=== PATIENT | male | born 1960 | race Caucasian/White ===

== ENCOUNTER 2023-09-16 15:30 | Emergency (ER) | payer OTHER, SELFPAY ==
[2023-09-16 15:33] VITALS: BP 128/73
[2023-09-16 15:40] VITALS: BMI 26.5
[2023-09-16 15:57] LABS: % Basophils 0.2 % (0-2); % Eosinophils 0.1 % (0-6); % Immature Granulocytes 0.6 % (0-0.5); % Lymphocytes 10.7 % (20.5-51.1); % Monocytes 18.1 % (1.7-9.3); % Neutrophils 70.3 % (42.2-75.2); Absolute Immature Granulocytes 0.1 10^3/uL (0-0.05); Absolute Lymphocytes 0.9 10^3/uL (1.2-3.4); Absolute Monocytes 1.5 10^3/uL (0.1-0.6); Absolute Neutrophils 5.9 10^3/uL (1.4-6.5); Hematocrit 44.5 % (39.0-52.0); Mean Corp Hgb Conc. 33.7 g/dL (33.0-37.0); Mean Corpuscular Hgb 30.6 pg (27.0-31.0); Mean Corpuscular Volume 90.8 fL (80.0-94.0); Mean Platelet Volume 9.1 fL (7.4-10.4); Nucleated Red Blood Cells % 0 % (-); Platelet Count 202 10^3/uL (130-400); Red Cell Dist. Width 13.5 % (11.5-14.5); White Blood Cell Count 8.4 10^3/uL (4.8-10.8)
[2023-09-16 16:12] LABS: ALT (SGPT) 28 U/L (0-50); AST (SGOT) 137 U/L (17-59); Albumin 4.2 g/dl (3.5-5.0); Alkaline Phosphatase 90 U/L (38-126); Blood Urea Nitrogen 31 mg/dl (9-20); Calcium 9.6 mg/dl (8.4-10.2); Carbon Dioxide 27 mmol/L (22-30); Chloride 105 mmol/L (98-107); Estimated Creatinine Clearance 78 ml/min; Glucose 127 mg/dl (70-99); Potassium 3.9 mmol/L (3.5-5.1); Sodium 139 mmol/L (135-145); Total Bilirubin 0.8 mg/dl (0.2-1.3); Total Protein 6.9 g/dl (6.3-8.2); eGFR > 60.00
--- NOTE | 2023-09-16 16:58 | ED.GENMED ---
History of Present Illness
General
Chief Complaint: Fall
Exam Limitations: dementia
Time Seen by Provider: 09/16/23 15:35
History of Present Illness
History of Present Illness:
63-year-old male history of dementia, postconcussive syndrome, hypertension, hyperlipidemia presenting from [facility] due to multiple falls. Per EMS, patient is at his baseline, alert and oriented to self only. Patient reports facial pain.
Patient denies chest pain, shortness of breath, cough, abdominal pain, or urinary symptoms. Patient difficult historian secondary to dementia. On chart review, patient is not on blood thinners.
Past History
Past History
ED Past Medical History: HTN, Hypercholesterolemia and Other (Former boxer, postconcussion syndrome, dementia)
Phy Exam
Physical Exam
Physical Exam:
General: Alert, no acute distress
Head: NCAT
Eyes: clear conjunctiva. PERRLA
Neck: supple. no midline cervical tenderness to palpation
Cardiac: regular rate and rhythm, no murmur
Lungs: clear to auscultation bilaterally. No wheezes, rales, or rhonchi. Speaking full unlabored sentences. No respiratory distress.
Abdomen: soft, nondistended nontender. No rebound or guarding.
MSK: RLE edema>LLE. No deformity. FROM bilateral lower extremities. 2+ DP pulse bilaterally. no bilateral hip/knee/ankle tenderness to palpation. no erythema to bilateral LE
Skin: warm, dry
Neuro: Alert and oriented x1 self only. no focal deficits. 5/5 bilateral upper and lower extremities
Course
Orders/Labs/Results
Orders:
Orders
09/16/23 15:33
Electrocardiogram (*1) Urgent
Reason for Study: Fatigue / Weakness
EKG- Treatment ONCE
09/16/23 15:41
Complete Blood Count/With Diff Urgent
Comprehensive Metabolic Panel Urgent
09/16/23 16:56
CT Cervical Spine W/o Iv Contr Urgent
Comment:
Reason For Exam: fall
CT Head W/o Iv Contrast Urgent
Comment:
Reason For Exam: fall head trauma
US Periph Venous LOWER Ext Solis Urgent
Comment:
Reason For Exam: pain, rle edema
09/16/23 17:09
Ammonia Urgent
09/16/23 17:18
UA Reflex to Culture [Urinalysis Reflex To Culture] Urgent
Date Specimen was Collected: 09/16/23
Time Specimen was Collected: 16:59
Urine Microscopic Reflex Cult Urgent
Abnormal Lab Results
09/16/23 09/16/23 09/16/23
15:41 17:09 17:18
Abs Immat Gran (auto) 0.1 H 10^3/uL
(0-0.05)
Absolute Lymphs (auto) 0.9 L 10^3/uL
(1.2-3.4)
Absolute Monos (auto) 1.5 H 10^3/uL
(0.1-0.6)
Immature Gran % 0.6 H %
(0-0.5)
Lymphocytes % 10.7 L %
(20.5-51.1)
Monocytes % 18.1 H %
(1.7-9.3)
BUN 31 H mg/dl
(9-20)
Glucose 127 H mg/dl
(70-99)
AST 137 H U/L
(17-59)
Ammonia < 9 L umol/L
(9-30)
Ur Occult Blood Reflex 3+ A
(Negative)
Leukocyte Esterase Rfl Trace A
(Negative)
Urine RBC 3-6 A /HPF
(0-2)
Urine Bacteria (Reflex) Few A
(Negative)
09/16/23 15:41
09/16/23 15:41
Vital Signs
Initial and Last Documented VS:
Initial Vital Signs
Temp Pulse Resp BP Pulse Ox
98.2 F 84 20 128/73 98
09/16/23 15:33 09/16/23 15:33 09/16/23 15:33 09/16/23 15:33 09/16/23 15:33
Last Documented Vital Signs
Temp Pulse Resp BP Pulse Ox
98.2 F 69 17 89/57 95
09/16/23 15:33 09/16/23 20:15 09/16/23 20:15 09/16/23 20:00 09/16/23 20:15
MDM/Problems Addressed
MDM/Problems Addressed:
Patient presents to the Emergency Department with ___frequent falls
Number and Complexity of Problems Addressed at the Encounter
� Chronic conditions affecting care: dementia
� Acute Exacerbation and/or Progression of Chronic Illness:
� Differential Diagnosis includes: DVT, intracranial hemorrhage, UTI, electrolyte abnormality
Amount and/or Complexity of Data to be Reviewed and Analyzed
� I performed an independent evaluation of and my interpretation is:
EKG: EKG shows SR at 84bpm with OH 140 QTc 434 no acute ischemic changes
CT:
Xrays:
Laboratory Studies: WBC, hemoglobin within normal limits. AST 137. ammonia within normal limits. UA negative for UTI
Other:
� Review of other/old records reveals:
� Clinical information was obtained by an independent historian:
� Prescriptions/Medications Considered but not given:
� Further testing considered but not performed:
Risk of Complications and/or Morbidity or Mortality of Patient Management
� Social Determinants of health affecting care:
� Discussion with other providers (PCP, Hospitalists, Consultants, etc):
� Escalation of care including admission/observation vs risk of discharge considered: 63yoM presenting for multiple falls of unclear period of time. Per EMS, patient alert and oriented to self only at baseline. On exam, heart RRR, lungs clear,
abdomen soft nontender. RLE>LLE. Workup reviewed, CT head/cervical spine unremarkable. Peripheral vascular ultrasound shows no acute DVT. Electrolytes within normal limits. AST 137 (no baseline). Ammonia within normal limits. Vitals stable. Will
discharge back to facility
*Critical Care Note
Total Time (30-74mins, 75-104mins- exclusive of procedures): Not Applicable
ED Attending Note
-
Portions of this chart may have been created with voice recognition software.� Occasional wrong word or��sound alike� substitutions may have occurred due to the inherent limitations of voice recognition software.
Discharge Plan
Departure
Patient Disposition: Home (Routine Discharge)
Date of Disposition: 09/16/23
Time of Disposition: 20:04
Patient with high blood pressure during this ER visit?: No
Discharge Problem:
Fall, Head trauma
Prescriptions:
No Action
acetaminophen 325 mg Tablet
650 mg PO Q6HPRN MDD 3000 mg PRN (Reason: mild pain/fever>100.4)
divalproex [Depakote] 250 mg Tablet,Delayed Release (Dr/Ec)
250 mg PO DAILY
polyethylene glycol 3350 [Miralax] 17 gram Powder In Packet
17 g PO DAILY
cyanocobalamin (vitamin B-12) 1,000 mcg Tablet
1,000 mcg PO DAILY
potassium chloride 10 mEq Tablet Extended Release
10 meq PO DAILY
melatonin 3 mg Tablet
3 mg PO HSPRN PRN (Reason: insomnia)
aspirin 81 mg Tablet,Delayed Release (Dr/Ec)
81 mg PO DAILY
magnesium hydroxide [Milk of Magnesia] 400 mg/5 mL Suspension
30 ml PO DAILYPRN PRN (Reason: no bm 3 days)
tamsulosin [Flomax] 0.4 mg Capsule
0.4 mg PO QPM
bisacodyl 10 mg Suppository
10 mg OH DAILYPRN PRN (Reason: constipation, mom ineffective)
divalproex [Depakote ER] 500 mg Tablet Extended Release 24 Hr
500 mg PO HS
Fleet Enema 19-7 gram/118 mL Enema
118 ml OH DAILYPRN PRN (Reason: constipation, suppository ineffective)
furosemide [Lasix] 20 mg Tablet
10 mg PO DAILY
furosemide [Lasix] 20 mg Tablet
20 mg PO Q48H
furosemide [Lasix] 20 mg Tablet
10 mg PO Q48H
mirtazapine [Remeron] 15 mg Tablet
15 mg PO HS
haloperidol 2 mg Tablet
2 mg PO TID
ketoconazole 1 % Shampoo
1 applic TOPICAL Q8HPRN PRN (Reason: scalp for seborrheic dermatitis)
rosuvastatin [Crestor] 10 mg Tablet
10 mg PO QPM
Biofreeze (menthol) 4 % Gel
1 applic TOPICAL DAILYPRN PRN (Reason: shoulder, mild pain)
lorazepam 1 mg/ml gel
0.5 mg topical Q6HPRN PRN (Reason: hairless areas, anxiety)
Referrals:
Percy Sanchez, DO [Family Provider] -
Activity Restrictions/Additional Instructions:
Follow up with primary care doctor in 1-2 days
Return to the emergency department for fever or new/worsening symptoms
Interventions
Interventions:
*Risk Screen - Suicide Last Done: 09/16/23 15:37
*General Assessment Last Done: 09/16/23 15:37
*Neglect/Abuse Screening Last Done: 09/16/23 15:37
*ED COVID-19 Vaccine History Last Done: 09/16/23 15:37
ED-Musculoskeletal Assessment Last Done: 09/16/23 15:45
ED- Neurological Assessment Last Done: 09/16/23 15:45
ED-Skin Assessment Last Done: 09/16/23 15:45
Discharge Date and Time
Print Language: WELSH
[2023-09-16 17:30] LABS: Urine Albumin Trace (Neg - Trace); Urine Bilirubin Negative (Negative); Urine Character Clear (Clear); Urine Color Yellow; Urine Glucose Negative (Negative); Urine Ketone Negative (Negative); Urine Leukocyte Trace (Negative); Urine Nitrite Negative (Negative); Urine Occult Blood 3+ (Negative); Urine Specific Gravity 1.025 (<1.030); Urine Urobilinogen Negative (Neg - 1+)
[2023-09-16 17:30] LABS: Ammonia < 9 umol/L (9-30)
[2023-09-16 18:02] LABS: Urine Bacteria Few (Negative); Urine Mucus Few; Urine Squamous Cell 0-2 /LPF (Few); Urine White Cell 0-2 /HPF (0-5)
[2023-09-16 18:37] VITALS: BP 96/58
[2023-09-16 19:00] VITALS: BP 97/59
[2023-09-16 20:00] VITALS: BP 89/57
[2023-09-16 21:00] VITALS: BP 92/55
== END 2023-09-16 21:38 | disposition home or self-care (01) ==
LOC: EMR 15:30
PROVIDERS: EMERGENCY PHYSICIAN Emergency Medicine; FAMILY PHYSICIAN Internal Medicine
DX: S09.90XA Unspecified injury of head, initial encounter (principal); W19.XXXA Unspecified fall, initial encounter; R60.0 Localized edema; F03.90 Unspecified dementia, unspecified severity, without behavioral disturbance, psychotic disturbance, mood disturbance, and anxiety; I10 Essential (primary) hypertension; E78.00 Pure hypercholesterolemia, unspecified; R29.6 Repeated falls
CPT/HCPCS: 99285; 70450; 72125; 80053; 81003; 81015; 82140; 85025; 93005; 93970